=== PATIENT | female | born 1990 | race Caucasian/White ===

== ENCOUNTER 2019-06-16 01:40 | Emergency (ER) | payer BC, MEDICAID ==
[~2019-06-16] VITALS: Ht 165.1 cm; Wt 49.9 kg
--- NOTE | 2019-06-16 01:50 | NUR ---
Dr. Villegas at bedside for MSE.
--- NOTE | 2019-06-16 01:56 | NUR ---
Pt out of ER for CT.
--- NOTE | 2019-06-16 02:08 | NUR ---
Pt back to ER from CT.
--- NOTE | 2019-06-16 02:28 | NUR ---
Patient discharged to home in stable conditon. Written and verbal after care instructions given. Patient verbalizes understanding of instructions. PT ambulated out of ER with steady gait, no acute signs of distress, VSS, all belongings taken.
[2019-06-16 02:29] VITALS: BP 120/85
== END 2019-06-16 02:29 | disposition home or self-care (01) ==
LOC: ER 01:44
DX: F07.81 Postconcussional syndrome (principal); R44.3 Hallucinations, unspecified; V49.9XXD Car occupant (driver) (passenger) injured in unspecified traffic accident, subsequent encounter
CPT/HCPCS: 70450; A4663